=== PATIENT | male | born 1985 | race Two or more races ===

== ENCOUNTER 2022-07-11 20:45 | Outpatient (CLI) | payer OTHER ==
[~2022-07-11 20:45] MED LIST: IBUPROFEN600 MG PO; SEPTRA DS TABLE1 TAB PO
== END 2022-07-11 23:00 | disposition home or self-care (01) ==
LOC: LAB 20:45
DX: Z20.828 Contact with and (suspected) exposure to other viral communicable diseases (principal); Z20.818 Contact with and (suspected) exposure to other bacterial communicable diseases